=== PATIENT | male | born 1985 | race African-American/Black ===

== ENCOUNTER 2018-04-10 05:19 | Emergency (ER) | payer SELFPAY ==
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
== END 2018-04-10 06:32 ==
LOC: JD.ED 05:19
DX: F10.120 Alcohol abuse with intoxication, uncomplicated (principal); Y90.0 Blood alcohol level of less than 20 mg/100 ml
CPT/HCPCS: 36415; 80053; 85025; 99284; G0480; 99282